=== PATIENT | female | born 1965 | race Caucasian/White ===

== ENCOUNTER 2018-08-24 16:54 | Emergency (ER) | payer MEDICAID ==
[~2018-08-24] VITALS: Ht 160 cm; Wt 105.7 kg
[~2018-08-24 16:54] MED LIST: ACLI400A2 INH; ALBU18HF INH; ATOR10TA9 PO; CITA40TA12 PO; DIAZ5TAB4 PO; HYDR-3245 PO; LISI1TAB5 PO; METH500T7 PO; OXYB5TAB7 PO; PANT20TA3 PO; SITA1TAB5 PO; will bring list
[2018-08-24 16:57] VITALS: BP 134/85
[2018-08-24 17:20] LABS: BASOPHILS # (AUTO) 0.07 x10^3/uL (0-0.1); BASOPHILS % (AUTO) 1 % (0-1); EOSINOPHILS # (AUTO) 0.27 x10^3/uL (0-0.4); EOSINOPHILS % (AUTO) 3 % (1-7); LYMPHOCYTES # (AUTO) 3.02 x10^3/uL (1-3.4); LYMPHOCYTES % (AUTO) 34 % (22-44); MD NO; MEAN CORPUSCULAR HGB CONC 33.8 g/dL (32.4-35.8); MEAN CORPUSCULAR VOLUME 88.6 fL (80-100); MEAN PLATELET VOLUME 8.7 fL (7.4-10.4); MONOCYTES # (AUTO) 0.63 x10^3/uL (0.2-0.8); MONOCYTES % (AUTO) 7 % (2-9); NEUTROPHILS # (AUTO) 4.91 x10^3/uL (1.8-6.8); NEUTROPHILS % (AUTO) 55 % (42-75); PLATELET COUNT 287 x10^3/uL (130-400); RED BLOOD COUNT 4.09 x10^6/uL (3.82-5.3); RED CELL DISTRIBUTION WIDTH 13.6 % (9.6-15.2)
[2018-08-24] MEDS ORDERED: LISI-167 PO (17:26)
[2018-08-24] MEDS ORDERED: QUET100T PO (17:28)
[2018-08-24] MEDS ORDERED: QUET50TA PO (17:28)
[2018-08-24 17:33] LABS: ALBUMIN 3.6 g/dL (3.4-5.0); ANION GAP 9 mmol/L (5-15); CALCIUM 8.5 mg/dL (8.5-10.1); CHLORIDE 109 mmol/L (98-107); CREATININE 1.17 mg/dL (0.55-1.02)
[2018-08-24 17:36] LABS: TROPONIN I < 0.015 ng/mL (0.000-0.045)
== END 2018-08-24 18:50 | disposition home or self-care (01) ==
LOC: ED 18:38
DX: M94.0 Chondrocostal junction syndrome [Tietze] (principal); B34.9 Viral infection, unspecified; J44.9 Chronic obstructive pulmonary disease, unspecified; I10 Essential (primary) hypertension; E11.9 Type 2 diabetes mellitus without complications; F17.210 Nicotine dependence, cigarettes, uncomplicated; Z90.710 Acquired absence of both cervix and uterus
CPT/HCPCS: 36415; 71045; 80048; 82040; 84484; 85025; 93005; 99285

== ENCOUNTER 2020-12-11 17:54 | Emergency (ER) | payer MEDICAID ==
[~2020-12-11] VITALS: Ht 160 cm; Wt 82.0 kg
[~2020-12-11 17:54] MED LIST changes: -ACLI400A2 INH; +ACLI400A3 INH; -HYDR-3245 PO; +HYDR1TAB53 PO; +LISI-167 PO; +LISI1TAB39 PO; -LISI1TAB5 PO; +METH-639 PO; -METH500T7 PO; +OXYB5TAB10 PO; -OXYB5TAB7 PO; -PANT20TA3 PO; +PANT20TA4 PO; +QUET100T PO; +QUET50TA PO
[2020-12-11 20:11] VITALS: BP 156/80
--- NOTE | 2020-12-11 20:30 | NUR ---
pt ambulated to room.
[2020-12-11] MEDS ORDERED: IBUPROFEN 200 MG TABLET PO ONE (21:00)
[2020-12-11] MEDS ORDERED: IBUPROFEN 600 MG TABLET ONE (21:05)
[2020-12-11] MEDS ORDERED: IBUPROFEN 200 MG TABLET ONE (21:06)
--- NOTE | 2020-12-11 21:35 | NUR ---
pt seen by , meds given per EMAR, states relief of pain. f/u and d/c instructions given to pt, and right wrist splint placed and pt tolerated well.
== END 2020-12-11 21:37 | disposition home or self-care (01) ==
LOC: ED 21:28
DX: G89.11 Acute pain due to trauma (principal); M79.641 Pain in right hand; M25.531 Pain in right wrist; I10 Essential (primary) hypertension; J44.9 Chronic obstructive pulmonary disease, unspecified; E11.9 Type 2 diabetes mellitus without complications; Z90.710 Acquired absence of both cervix and uterus
CPT/HCPCS: 29125; 99283